=== PATIENT | male | born 1960 | race Caucasian/White ===

== ENCOUNTER 2017-10-26 09:31 | Day surgery (SDC) | payer OTHER ==
[~2017-10-26] VITALS: Ht 185.4 cm; Wt 98.8 kg
[~2017-10-26 09:31] MED LIST: TRICOR48 MG PO
[2017-10-26 10:05] LABS: HEMATOCRIT 43.9 % (38.0-50.0); HEMOGLOBIN 15.4 G/DL (12.5-16.6); MCH 33.6 PG (29.0-34.0); MCHC 35.1 G/DL (30.0-36.0); MCV 95.9 FL (86-99); PLATELET COUNT 232 K/uL (156-360); RBC DIS.WIDTH-CV 11.9 % (11.8-14.6); RBC DIS.WIDTH-SD 41.3 % (39-53); RED BLOOD COUNT 4.58 M/uL (4.00-5.50); WHITE BLOOD COUNT 7.1 K/uL (4.1-10.2)
[2017-10-26 10:16] LABS: ALBUMIN 4.2 g/dL (3.2-4.8); CHLORIDE 107 mEq/L (99-109); POTASSIUM 4.6 mEq/L (3.7-5.4); SODIUM 138 mEq/L (136-147)
[2017-10-26 10:18] LABS: GLUCOSE 86 mg/dL (70-99); TOTAL PROTEIN 6.7 g/dL (6.4-8.3)
[2017-10-26 10:20] LABS: TOTAL BILIRUBIN 0.6 mg/dL (0.0-1.0)
[2017-10-26 10:22] LABS: ALKALINE PHOSPHATASE 87 IU/L (3-129); GFR ESTIMATE (CALCULATED) > 59 mL/min/ (58.99-99999)
[2017-10-26 10:23] LABS: UREA NITROGEN (BUN) 18 mg/dL (9-23)
[2017-10-26 10:24] LABS: AST (GOT) 22 IU/L (2-34)
[2017-10-26 10:25] LABS: ALT (GPT) 23 IU/L (3-49); LIPASE 9 U/L (1.0-51.0)
[2017-10-26 10:46] LABS: APPEARANCE CLEAR ((CLEAR)); BILIRUBIN NEGATIVE; BLOOD NEGATIVE; COLOR YELLOW ((YELLOW)); GLUCOSE (STRIP) NEGATIVE; KETONES NEGATIVE; LEUKOCYTES NEGATIVE; NITRITE NEGATIVE; PROTEIN (STRIP) NEGATIVE; SPECIFIC GRAVITY 1.012 (1.000-1.030); UCUL ADDED? NO; UROBILINOGEN 0.2 MG/DL (0.2-1.0)
[2017-10-26] MEDS ORDERED: GEMFIBROZIL600 MG PO (15:55)
[2017-10-26] MEDS ORDERED: TOPROL XL100 MG PO (15:55)
[2017-10-26] MEDS ORDERED: NORVASC5 MG PO (15:56)
[2017-10-26] MEDS ORDERED: TORADOL10 MG PO (18:46)
[2017-10-26 20:46] VITALS: BP 130/73
[2017-10-27 00:32] VITALS: BP 129/68
[2017-10-27 03:51] VITALS: BP 135/76
[2017-10-27 07:38] VITALS: BP 148/80
[2017-10-27] MEDS ORDERED: TORADOL10 MG PO (09:05)
[2017-10-27 09:25] LABS: HEMATOCRIT 40.4 % (38.0-50.0); HEMOGLOBIN 13.9 G/DL (12.5-16.6); MCH 33.4 PG (29.0-34.0); MCHC 34.4 G/DL (30.0-36.0); MCV 97.1 FL (86-99); PLATELET COUNT 225 K/uL (156-360); RBC DIS.WIDTH-CV 11.9 % (11.8-14.6); RBC DIS.WIDTH-SD 42.8 % (39-53); RED BLOOD COUNT 4.16 M/uL (4.00-5.50); WHITE BLOOD COUNT 8.6 K/uL (4.1-10.2)
== END 2017-10-27 11:10 | disposition home or self-care (01) ==
LOC: EME 09:31 → SDC 17:46 → ENRESERV 19:27 → 2EASTP 19:36 → 2SOUTH 19:36 → 2EASTP 20:13
PROVIDERS: Surgery
PROC: 0DTJ4ZZ Resection of Appendix, Percutaneous Endoscopic Approach (ICD-10-PCS; principal; 2017-10-26)
DX: K35.80 Unspecified acute appendicitis (principal); R00.0 Tachycardia, unspecified; K57.90 Diverticulosis of intestine, part unspecified, without perforation or abscess without bleeding; I10 Essential (primary) hypertension; E78.5 Hyperlipidemia, unspecified; F32.9 Major depressive disorder, single episode, unspecified; M48.00 Spinal stenosis, site unspecified; Z87.891 Personal history of nicotine dependence; Z98.890 Other specified postprocedural states; Z91.030 Bee allergy status; Z88.5 Allergy status to narcotic agent; Z91.09 Other allergy status, other than to drugs and biological substances
CPT/HCPCS: 74177; 80053; 81003; 83690; 85027; 88304; 99281; 99285; G0378; J0131; J0330; J0692; J0713; J1100; J1170; J1885; J2405; J2710; J3010; J7030; J7120; S0074